=== PATIENT | male | born 1975 | race Two or more races ===

== ENCOUNTER 2022-05-26 07:37 | Emergency (ER) | payer MEDICAID ==
[~2022-05-26] VITALS: Ht 167.6 cm; Wt 59.0 kg
--- NOTE | 2022-05-26 07:51 | NUR ---
TO ER BED 13, BIBS FOR MEDICAL CLEARANCE TO GO TO PSYCH FACILITY, SI PLAN TO JUMP INTO TRAFFIC, AAOX3, BREATHING EVEN AND NON LABORED, SECURITY AT BEDSIDE FOR WANDING, AWAITING MD CANALES
[2022-05-26 08:30] LABS: BASOPHILS # (AUTO) 0.1 K/uL (0.0-0.2); BASOPHILS % (AUTO) 1.2 % (0.0-2.0); EOSINOPHILS % (AUTO) 1.3 % (0.0-6.0); HEMATOCRIT 35 % (39-51); HEMOGLOBIN 11.8 g/dL (13.5-17.5); LYMPHOCYTES # (AUTO) 1.6 K/uL (0.8-4.8); LYMPHOCYTES % (AUTO) 31.9 % (20.0-44.0); MEAN CORPUSCULAR HGB CONC 34 g/dl (31.0-36.0); MEAN CORPUSCULAR VOLUME 85 fL (80-96); MONOCYTES # (AUTO) 0.6 K/uL (0.1-1.30); MONOCYTES % (AUTO) 10.7 % (2.0-12.0); NEUTROPHILS # (AUTO) 2.8 K/uL (1.8-8.9); NEUTROPHILS % (AUTO) 54.9 % (43.0-81.0); PLATELET COUNT (AUTO) 306 K/uL (150-450); RED BLOOD CELL COUNT(AUTO) 4.14 MIL/uL (4.5-6.0); WHITE BLOOD COUNT (AUTO) 5.1 K/uL (4.3-11.0)
[2022-05-26] MEDS ORDERED: VALPROIC ACID 250 MG/5 ML UDC PO ONE (08:30)
[2022-05-26 08:32] LABS: BILIRUBIN,URINE NEGATIVE (NEGATIVE); COLOR,URINE YELLOW (YELLOW); LEUKOCYTE ESTERASE ,URINE NEGATIVE (NEGATIVE); NITRITE, URINE NEGATIVE (NEGATIVE); PROTEIN,URINE NEGATIVE (NEGATIVE); UGLUCOSE NEGATIVE (NEGATIVE); UROBILINOGEN,URINE 0.2 EU/dL (0.2)
[2022-05-26 08:42] LABS: CALCIUM, SERUM 8.7 mg/dL (8.5-10.1); CARBON DIOXIDE 28 mmol/L (21-32); CHLORIDE 100 mmol/L (98-107); CREATININE 0.6 mg/dL (0.6-1.3); GLUCOSE 107 mg/dL (74-106); POTASSIUM 3.4 mmol/L (3.5-5.1); SODIUM SERUM 136 mmol/L (136-145); UREA NITROGEN, BLOOD 19 mg/dL (7-18)
[2022-05-26 08:47] LABS: BACTERIA,URINE Few /HPF (None Seen); SQUAMOUS EPITHELIAL CELL,UR Few /HPF (None Seen)
[2022-05-26 08:48] LABS: ALANINE AMINOTRANSFERASE 35 U/L (12-78); ALBUMIN 3.3 g/dL (3.4-5.0); ALCOHOL, BLOOD < 3 mg/dL (0-0); ALKALINE PHOSPHATASE 104 U/L (46-116); ASPARTATE AMINOTRANSFERASE 35 U/L (15-37); BILIRUBIN,DIRECT 0.2 mg/dL (0.0-0.2); BILIRUBIN,TOTAL 0.8 mg/dL (0.2-1.0); TOTAL PROTEIN, SERUM 7.2 g/dL (6.4-8.2)
[2022-05-26 08:52] LABS: ACETAMINOPHEN < 10 ug/ml (10-30)
[2022-05-26] MEDS ORDERED: VALPROIC ACID 250 MG/5 ML UDC ONE (11:09)
[2022-05-26] MEDS ORDERED: QUETIAPINE FUMARATE 100 MG TABLET ONE ×3 (11:09→17:21)
[2022-05-26] MEDS: QUETIAPINE FUMARATE 100 MG TABLET PO SCH ×2 (11:20→17:23)
--- NOTE | 2022-05-26 12:30 | NUR ---
LUNCH TRAY PROVIDED, TOLERATED WELL
[2022-05-26 15:10] VITALS: BP 127/70
--- NOTE | 2022-05-26 16:51 | NUR ---
FAXED CLINICALS TO INTAKE
--- NOTE | 2022-05-26 19:24 | NUR ---
ACCEPTED AT [facility] MD GONZALEZ REPORT [phone]
--- NOTE | 2022-05-26 19:29 | NUR ---
[facility] CALLED FOR BLS GOING TO [facility] ETA - 2 HOURS
--- NOTE | 2022-05-26 20:57 | NUR ---
REPORT GIVEN TO LAURITA SHAY
--- NOTE | 2022-05-26 21:09 | NUR ---
[facility] REPORT GIVEN AT BEDSIDE
== END 2022-05-26 21:29 ==
LOC: ER 07:52
DX: R45.851 Suicidal ideations (principal); F31.9 Bipolar disorder, unspecified; F20.9 Schizophrenia, unspecified; D64.9 Anemia, unspecified; E87.6 Hypokalemia; Z20.822 Contact with and (suspected) exposure to COVID-19
CPT/HCPCS: 99285; 85025; 80048; 80076; 81001; 36415; 87426; 80143; 80320; 80307; C9803; G0480